=== PATIENT | male | born 1990 | race Caucasian/White ===

== ENCOUNTER → 2016-08-26 | Outpatient (CLI) | payer OTHER ==
--- NOTE | 2016-08-26 16:05 | XR ---
EXAMINATION TYPE: XR knee complete RT DATE OF EXAM: 08/26/2016 CLINICAL HISTORY: pain TECHNIQUE: Three views of the right knee are obtained. COMPARISON: None. FINDINGS: There is no acute fracture/dislocation. The tri-compartment joint spaces appear within no rmal limits. The overlying soft tissue appears unremarkable. Suprapatellar joint effusion suspected. IMPRESSION: There is no acute fracture or dislocation.ICD 10 NO FRACTURE, INITIAL EVALUATION
== END | disposition home or self-care (01) ==
LOC: RADXRMAIN 10:49
PROVIDERS: ATTEND Emergency Medicine
DX: S80.01XA Contusion of right knee, initial encounter (principal)

== ENCOUNTER → 2018-11-03 | Outpatient (CLI) | payer OTHER ==
--- NOTE | 2018-11-03 14:16 | XR ---
EXAMINATION TYPE: XR hand complete LT DATE OF EXAM: 11/03/2018 CLINICAL HISTORY: Right hand pain after crush injury TECHNIQUE: Frontal, lateral and oblique images of the left hand are obtained. COMPARISON: None. FINDINGS: There is no acute fracture/dislocation evident in the left hand. The joint spaces in the l eft hand appear within normal limits. The dressing overlies the distal first digit. No radiopaque for eign body. IMPRESSION: There is no acute fracture or dislocation in the left hand. No radiopaque foreign body.
== END | disposition home or self-care (01) ==
LOC: RADXRMAIN 13:51
PROVIDERS: ATTEND Emergency Medicine
DX: S67.10XA Crushing injury of unspecified finger(s), initial encounter (principal)

== ENCOUNTER → 2018-11-11 | Outpatient (CLI) | payer OTHER ==
--- NOTE | 2018-11-11 10:27 | XR ---
EXAMINATION TYPE: XR finger LT DATE OF EXAM: 11/11/2018 COMPARISON: 11/03/2018 HISTORY: Left finger nail avulsion TECHNIQUE: 3 views of the left thumb were obtained. FINDINGS: Minimal soft tissue swelling is seen of the left thumb overlying the distal tuft. No radio opaque foreign body or osseous fracture. No dislocation is seen. IMPRESSION: Minimal soft tissue swelling of the distal aspect of the thumb with no radiopaque foreign body or acute osseous fracture.
== END | disposition home or self-care (01) ==
LOC: RADXRMAIN 09:54
PROVIDERS: ATTEND Emergency Medicine
DX: M79.89 Other specified soft tissue disorders (principal); M79.645 Pain in left finger(s)